=== PATIENT | male | born 1995 | race Caucasian/White ===

== ENCOUNTER 2019-11-03 11:19 | Emergency (ER) | payer OTHER ==
[~2019-11-03] VITALS: Ht 188 cm; Wt 74.8 kg
[2019-11-03] MEDS ORDERED: SULFAMETH/TRIMETH 800/160 MG TABLET PO ONE (11:30)
--- NOTE | 2019-11-03 11:32 | NUR ---
Dr Abdul at the bedside for MSE.
[2019-11-03] MEDS ORDERED: SULFAMETH/TRIMETH 800/160 MG TABLET ONE (11:37)
[2019-11-03 11:39] VITALS: BP 120/73
--- NOTE | 2019-11-03 11:39 | NUR ---
Patient discharged to home in stable condition. Written and verbal after care instructions given. Patient verbalizes understanding of instructions. Stressed follow up or return to ER for worsening s/s.
== END 2019-11-03 11:39 | disposition home or self-care (01) ==
LOC: ER 11:19
DX: L02.413 Cutaneous abscess of right upper limb (principal); L03.113 Cellulitis of right upper limb; X78.8XXS Intentional self-harm by other sharp object, sequela; S51.831S Puncture wound without foreign body of right forearm, sequela
CPT/HCPCS: A4663